=== PATIENT | male | born 1995 | race Asian ===

== ENCOUNTER 2018-07-17 15:58 | Emergency (ER) | payer OTHER ==
[~2018-07-17] VITALS: Ht 184 cm; Wt 147.3 kg
[2018-07-17 16:06] VITALS: BP 143/82; PULSE 100; TEMP 98.1
== END 2018-07-17 16:45 | disposition home or self-care (01) ==
LOC: COL.ER 15:58
DX: T63.461A Toxic effect of venom of wasps, accidental (unintentional), initial encounter (principal)